=== PATIENT | male | born 1975 | race Caucasian/White ===

== ENCOUNTER 2016-10-13 11:59 | Emergency (ER) | payer SELFPAY ==
[~2016-10-13 11:59] MED LIST: AUGMENTIN875 MG PO; CIPRO500 MG PO; NEXIUM40 MG PO
== END 2016-10-13 12:47 | disposition left against medical advice (07) ==
LOC: EME 11:59
DX: R22.2 Localized swelling, mass and lump, trunk (principal); Z53.21 Procedure and treatment not carried out due to patient leaving prior to being seen by health care provider

== ENCOUNTER 2017-04-05 05:19 | Emergency (ER) | payer SELFPAY ==
[~2017-04-05] VITALS: Ht 190.5 cm; Wt 105.3 kg
[2017-04-05 05:38] LABS: HEMATOCRIT 47.6 % (38.0-50.0); MCH 30.9 PG (29.0-34.0); MCHC 34.5 G/DL (30.0-36.0); MCV 89.8 FL (86-99); MEAN PLAT.VOLUME 9.7 uM^3 (9.0-12.4); PLATELET COUNT 290 K/uL (156-360); RBC DIS.WIDTH-CV 13.4 % (11.8-14.6); RBC DIS.WIDTH-SD 43.9 % (39-53); WHITE BLOOD COUNT 18.4 K/uL (4.1-10.2)
[2017-04-05 05:54] LABS: CHLORIDE 104 mEq/L (99-109); POTASSIUM 4.2 mEq/L (3.7-5.4); SODIUM 142 mEq/L (136-147)
[2017-04-05 05:55] LABS: GLUCOSE 168 mg/dL (70-99)
[2017-04-05 05:57] LABS: ANION GAP 11 MEQ/L (2-14)
[2017-04-05 05:59] LABS: GFR ESTIMATE (CALCULATED) > 59 mL/min/
[2017-04-05 06:00] LABS: UREA NITROGEN (BUN) 13 mg/dL (9-23)
[2017-04-05 06:04] LABS: TOTAL BILIRUBIN 0.3 mg/dL (0.0-1.0)
[2017-04-05 06:05] LABS: ALKALINE PHOSPHATASE 63 IU/L (3-129); TROP-I INTERPRETATION NEGATIVE; TROPONIN-I < 0.01 ng/mL (0.0-0.30)
[2017-04-05 06:08] LABS: DIRECT BILIRUBIN 0.1 mg/dL (0.0-0.3)
[2017-04-05 06:09] LABS: LIPASE 10 U/L (1.0-51.0)
[2017-04-05] MEDS ORDERED: PERCOCET 5/31 TABLET PO (12:18)
[2017-04-05 12:40] VITALS: BP 176/113
== END 2017-04-05 12:41 | disposition home or self-care (01) ==
LOC: EME → EDBD 05:19 → EME 05:19
PROVIDERS: Emergency Medicine
DX: K80.20 Calculus of gallbladder without cholecystitis without obstruction (principal); R07.9 Chest pain, unspecified; I10 Essential (primary) hypertension
CPT/HCPCS: 71020; 74177; 76705; 80048; 80076; 83605; 83690; 83880; 84484; 85027; 93005; 99281; 99285; J0500; J2270; J2405; J7030

== ENCOUNTER 2017-10-14 16:50 | Inpatient (IN) | payer SELFPAY ==
[~2017-10-14] VITALS: Ht 190.5 cm; Wt 103.3 kg
[~2017-10-14 16:50] MED LIST changes: +PERCOCET 5/31 TABLET PO
[2017-10-14 17:25] LABS: HEMATOCRIT 52.5 % (38.0-50.0); HEMOGLOBIN 18.2 G/DL (12.5-16.6); MCH 32.1 PG (29.0-34.0); MCHC 34.7 G/DL (30.0-36.0); MCV 92.6 FL (86-99); PLATELET COUNT 237 K/uL (156-360); RBC DIS.WIDTH-CV 13.8 % (11.8-14.6); RBC DIS.WIDTH-SD 47.1 % (39-53); RED BLOOD COUNT 5.67 M/uL (4.00-5.50); WHITE BLOOD COUNT 6.2 K/uL (4.1-10.2)
[2017-10-14 17:59] LABS: CHLORIDE 105 MEQ/L (99-109); POTASSIUM 3.5 MEQ/L (3.7-5.4); SODIUM 139 MEQ/L (136-147); TOTAL BILIRUBIN 0.4 MG/DL (0.0-1.0)
[2017-10-14 18:05] LABS: ALKALINE PHOSPHATASE 60 IU/L (3-129); ALT (GPT) 27 IU/L (3-49); AST (GOT) 29 IU/L (2-34); CREATININE 0.8 MG/DL (0.6-1.3); GFR ESTIMATE (CALCULATED) > 59 mL/min/ (58.99-99999); GLUCOSE 121 mg/dL (70-99); LIPASE 10 U/L (1.0-51.0); TOTAL PROTEIN 6.9 G/DL (6.4-8.3); UREA NITROGEN (BUN) 11 mg/dL (9-23)
[2017-10-15] MEDS ORDERED: PRILOSEC OTC20 MG PO (00:19)
[2017-10-15 00:30] LABS: APPEARANCE CLEAR ((CLEAR)); BILIRUBIN NEGATIVE; BLOOD NEGATIVE; COLOR YELLOW ((YELLOW)); GLUCOSE (STRIP) NEGATIVE; KETONES 80; LEUKOCYTES NEGATIVE; NITRITE NEGATIVE; PROTEIN (STRIP) NEGATIVE; SPECIFIC GRAVITY 1.034 (1.000-1.030); UCUL ADDED? NO; UROBILINOGEN 0.2 MG/DL (0.2-1.0)
[2017-10-15 02:31] VITALS: BP 177/100
[2017-10-15 06:22] LABS: HEMATOCRIT 52.7 % (38.0-50.0); HEMOGLOBIN 18.1 G/DL (12.5-16.6); MCH 31.4 PG (29.0-34.0); MCHC 34.3 G/DL (30.0-36.0); MCV 91.5 FL (86-99); PLATELET COUNT 229 K/uL (156-360); RBC DIS.WIDTH-CV 13.8 % (11.8-14.6); RBC DIS.WIDTH-SD 46.6 % (39-53); RED BLOOD COUNT 5.76 M/uL (4.00-5.50); WHITE BLOOD COUNT 7.9 K/uL (4.1-10.2)
[2017-10-15 06:47] LABS: ALBUMIN 3.8 G/DL (3.2-4.8); ALKALINE PHOSPHATASE 59 IU/L (3-129); ALT (GPT) 23 IU/L (3-49); AST (GOT) 20 IU/L (2-34); CHLORIDE 101 MEQ/L (99-109); CREATININE 0.9 MG/DL (0.6-1.3); GFR ESTIMATE (CALCULATED) > 59 mL/min/ (58.99-99999); GLUCOSE 137 mg/dL (70-99); POTASSIUM 3.3 MEQ/L (3.7-5.4); SODIUM 138 MEQ/L (136-147); TOTAL PROTEIN 6.2 G/DL (6.4-8.3); UREA NITROGEN (BUN) 6 mg/dL (9-23)
[2017-10-15 06:48] LABS: TOTAL BILIRUBIN 0.5 MG/DL (0.0-1.0)
[2017-10-15 07:00] VITALS: BP 147/95
[2017-10-15 07:36] VITALS: BP 141/96
[2017-10-15 15:19] VITALS: BP 119/71
[2017-10-15 21:09] VITALS: BP 97/61
[2017-10-15 23:35] VITALS: BP 87/49
[2017-10-16] VITALS (7 sets, daily range): BP systolic 95–123; BP diastolic 58–78
[2017-10-16 05:54] LABS: HEMATOCRIT 46.8 % (38.0-50.0); MCH 31.3 PG (29.0-34.0); MCHC 33.5 G/DL (30.0-36.0); MCV 93.4 FL (86-99); PLATELET COUNT 186 K/uL (156-360); RBC DIS.WIDTH-SD 48.1 % (39-53); RED BLOOD COUNT 5.01 M/uL (4.00-5.50); WHITE BLOOD COUNT 5.1 K/uL (4.1-10.2)
[2017-10-16 05:55] LABS: HEMOGLOBIN 15.7 G/DL (12.5-16.6)
[2017-10-16 06:04] LABS: ALKALINE PHOSPHATASE 44 IU/L (3-129); ALT (GPT) 18 IU/L (3-49); AST (GOT) 17 IU/L (2-34); CHLORIDE 102 MEQ/L (99-109); CREATININE 1.2 MG/DL (0.6-1.3); GFR ESTIMATE (CALCULATED) > 59 mL/min/ (58.99-99999); MAGNESIUM 1.6 mg/dl (1.3-2.7); SODIUM 137 MEQ/L (136-147); TOTAL BILIRUBIN 0.5 MG/DL (0.0-1.0); UREA NITROGEN (BUN) 9 mg/dL (9-23)
[2017-10-16 06:06] LABS: GLUCOSE 98 mg/dL (70-99); POTASSIUM 4.3 MEQ/L (3.7-5.4)
[2017-10-17 02:30] VITALS: BP 120/85
[2017-10-17 04:12] VITALS: BP 124/92
[2017-10-17 04:48] LABS: HEMATOCRIT 48.5 % (38.0-50.0); HEMOGLOBIN 16.6 G/DL (12.5-16.6); MCH 31.9 PG (29.0-34.0); MCHC 34.2 G/DL (30.0-36.0); MCV 93.1 FL (86-99); PLATELET COUNT 199 K/uL (156-360); RBC DIS.WIDTH-CV 13.7 % (11.8-14.6); RBC DIS.WIDTH-SD 47.4 % (39-53); RED BLOOD COUNT 5.21 M/uL (4.00-5.50); WHITE BLOOD COUNT 7.8 K/uL (4.1-10.2)
[2017-10-17 05:10] LABS: ALBUMIN 3.3 g/dL (3.2-4.8); CHLORIDE 103 mEq/L (99-109); SODIUM 138 mEq/L (136-147)
[2017-10-17 05:12] LABS: GLUCOSE 111 mg/dL (70-99)
[2017-10-17 05:13] LABS: TOTAL PROTEIN 5.3 g/dL (6.4-8.3)
[2017-10-17 05:14] LABS: TOTAL BILIRUBIN 0.3 mg/dL (0.0-1.0)
[2017-10-17 05:16] LABS: ALKALINE PHOSPHATASE 54 IU/L (3-129); CREATININE 0.9 mg/dL (0.6-1.3); GFR ESTIMATE (CALCULATED) > 59 mL/min/ (58.99-99999)
[2017-10-17 05:17] LABS: UREA NITROGEN (BUN) 8 mg/dL (9-23)
[2017-10-17 05:18] LABS: AST (GOT) 75 IU/L (2-34)
[2017-10-17 05:19] LABS: ALT (GPT) 58 IU/L (3-49)
[2017-10-17 08:48] VITALS: BP 135/89
[2017-10-17 10:09] LABS: AMYLASE 16 IU/L (1-118)
[2017-10-17 10:18] LABS: LIPASE 3 U/L (1.0-51.0)
[2017-10-17 11:58] VITALS: BP 128/90
[2017-10-17 17:05] VITALS: BP 129/91
[2017-10-17 23:47] VITALS: BP 148/65
[2017-10-18 04:25] VITALS: BP 128/81
[2017-10-18 05:24] LABS: HEMOGLOBIN 15.6 G/DL (12.5-16.6); MCH 30.9 PG (29.0-34.0); MCHC 33.2 G/DL (30.0-36.0); MCV 93.1 FL (86-99); PLATELET COUNT 203 K/uL (156-360); RBC DIS.WIDTH-CV 13.6 % (11.8-14.6); RBC DIS.WIDTH-SD 46.8 % (39-53); RED BLOOD COUNT 5.05 M/uL (4.00-5.50); WHITE BLOOD COUNT 7.6 K/uL (4.1-10.2)
[2017-10-18 05:54] LABS: ALBUMIN 3.2 G/DL (3.2-4.8); ALKALINE PHOSPHATASE 44 IU/L (3-129); ALT (GPT) 47 IU/L (3-49); AST (GOT) 43 IU/L (2-34); CHLORIDE 102 MEQ/L (99-109); GFR ESTIMATE (CALCULATED) > 59 mL/min/ (58.99-99999); GLUCOSE 94 mg/dL (70-99); POTASSIUM 3.7 MEQ/L (3.7-5.4); SODIUM 139 MEQ/L (136-147); TOTAL BILIRUBIN 0.4 MG/DL (0.0-1.0); TOTAL PROTEIN 5.8 G/DL (6.4-8.3); UREA NITROGEN (BUN) 7 mg/dL (9-23)
[2017-10-18 07:58] VITALS: BP 114/69
[2017-10-18] MEDS ORDERED: NICOTINE PATCH1 EAC1 TD (12:06)
[2017-10-18] MEDS ORDERED: LORAZEPAM2 MG PO (12:06)
[2017-10-18] MEDS ORDERED: LOSARTAN POTAS100 MG PO (12:06)
[2017-10-18] MEDS ORDERED: OXYCODONE HCL5 MG PO (12:06)
[2017-10-18] MEDS ORDERED: AMLODIPINE BESYL5 MG PO (12:06)
== END 2017-10-18 13:04 | disposition home or self-care (01) | DRG 418 ==
LOC: EME 16:50 → 3EAST 10-15 01:05 → EDOF 10-15 01:05 → ENRESERV 10-15 01:06 → 3EAST 10-15 02:12
PROVIDERS: Surgery
PROC: 0FT44ZZ Resection of Gallbladder, Percutaneous Endoscopic Approach (ICD-10-PCS; principal; 2017-10-15)
DX: K80.12 Calculus of gallbladder with acute and chronic cholecystitis without obstruction (principal); I10 Essential (primary) hypertension; K80.10 Calculus of gallbladder with chronic cholecystitis without obstruction; K76.0 Fatty (change of) liver, not elsewhere classified; F17.213 Nicotine dependence, cigarettes, with withdrawal; K21.9 Gastro-esophageal reflux disease without esophagitis; F10.20 Alcohol dependence, uncomplicated; E87.6 Hypokalemia; I95.9 Hypotension, unspecified; R74.0 Nonspecific elevation of levels of transaminase and lactic acid dehydrogenase [LDH]; Z68.28 Body mass index [BMI] 28.0-28.9, adult; Q89.9 Congenital malformation, unspecified; N39.43 Post-void dribbling; G47.00 Insomnia, unspecified
CPT/HCPCS: 74177; 80053; 81003; 82150; 83690; 83735; 85027; 88304; 94640; 94640 76; 94799; 99202; 99281; 99285; C9113; J0131; J1100; J1170; J1885; J2250; J2405; J2710; J3010; J7030; J7120; S0074